=== PATIENT | female | born 1955 | race Caucasian/White ===

== ENCOUNTER 2018-08-03 06:12 | Day surgery (SDC) | payer BC ==
[~2018-08-03] VITALS: Ht 165.1 cm; Wt 73.9 kg
[~2018-08-03 06:12] MED LIST: BENADRYL25 MG PO; FISH OIL1000 MG PO; LEVOCETIRIZINE D5 MG PO; LIPITOR10 M1 PO; MECLIZINE25 MG PO; MOBIC7.5 M1 PO; RANITIDINE150 M1 OR; RANITIDINE150 MG OR; STIOLTO RESPIMA1 AER; VERAPAMIL120 M1 PO
[2018-08-03] MEDS ORDERED: NORCO1 TA1 PO (08:45)
[2018-08-03 09:06] VITALS: BP 110/56
== END 2018-08-03 09:34 | disposition home or self-care (01) | DRG 572 ==
LOC: ORM 06:12
PROVIDERS: ATTEND Surgery
PROC: 0JB80ZZ Excision of Abdomen Subcutaneous Tissue and Fascia, Open Approach (ICD-10-PCS; principal; 2018-08-03)
DX: D17.1 Benign lipomatous neoplasm of skin and subcutaneous tissue of trunk (principal)